=== PATIENT | male | born 1970 | race Caucasian/White ===

== ENCOUNTER 2017-04-23 13:27 | Day surgery (SDC) | payer OTHER ==
[~2017-04-23] VITALS: Ht 167.6 cm; Wt 53.9 kg
[2017-04-23 14:01] VITALS: Ht 167.6 cm; Wt 53.9 kg
[2017-04-23] MEDS ORDERED: KLONOPIN PO (14:04)
[2017-04-23] MEDS ORDERED: EFFEXOR PO (14:04)
[2017-04-23] MEDS ORDERED: BUSPAR PO (14:04)
== END 2017-04-23 18:43 | disposition home or self-care (01) ==
LOC: GIL 13:27
PROVIDERS: ATTEND Internal Medicine Gastroenterology
DX: Z12.11 Encounter for screening for malignant neoplasm of colon (principal); Z85.038 Personal history of other malignant neoplasm of large intestine; R14.0 Abdominal distension (gaseous); R12 Heartburn; Z53.20 Procedure and treatment not carried out because of patient's decision for unspecified reasons